=== PATIENT | male | born 1940 | race Caucasian/White ===

== ENCOUNTER → 2017-06-05 | Outpatient (CLI) | payer MEDICARE, OTHER ==
[~2017-06-05] MED LIST: ASPI-496 PO; IBUP-1223 PO
[2017-06-05 14:58] LABS: BASOPHILS # (AUTO) 0.02 x10^3/uL (0-0.1); BASOPHILS % (AUTO) 0 % (0-1); EOSINOPHILS # (AUTO) 0.22 x10^3/uL (0-0.4); EOSINOPHILS % (AUTO) 3 % (1-7); LYMPHOCYTES # (AUTO) 2.26 x10^3/uL (1-3.4); LYMPHOCYTES % (AUTO) 34 % (22-44); MD NO; MEAN CORPUSCULAR HEMOGLOBIN 29.8 pg (27.5-34.5); MEAN CORPUSCULAR HGB CONC 34.2 g/dL (33.2-36.2); MEAN CORPUSCULAR VOLUME 87.1 fL (81-97); MONOCYTES # (AUTO) 0.55 x10^3/uL (0.2-0.8); MONOCYTES % (AUTO) 8 % (2-9); NEUTROPHILS # (AUTO) 3.52 x10^3/uL (1.8-6.8); NEUTROPHILS % (AUTO) 54 % (42-75); PLATELET COUNT 302 x10^3/uL (130-400); RED BLOOD COUNT 4.72 x10^6/uL (4.38-5.82); RED CELL DISTRIBUTION WIDTH 13.5 % (9.4-14.8)
[2017-06-05 15:01] LABS: MICROSCOPIC NOT IND
[2017-06-05 15:02] LABS: CULTURE INDICATED? NO
[2017-06-05 15:09] LABS: ALBUMIN 4.3 g/dL (3.4-5.0); ANION GAP 7 mmol/L (5-15); CHLORIDE 103 mmol/L (98-107)
[2017-06-05 15:13] LABS: ALANINE AMINOTRANSFERASE 21 U/L (12-78); ALKALINE PHOSPHATASE 60 U/L (45-117); BILIRUBIN,TOTAL 0.5 mg/dL (0.2-1.0); CREATININE 0.85 mg/dL (0.7-1.3)
== END | disposition home or self-care (01) ==
LOC: STAR 13:36
PROVIDERS: ATTEND Orthopaedic Surgery
DX: Z01.818 Encounter for other preprocedural examination (principal); M16.12 Unilateral primary osteoarthritis, left hip
CPT/HCPCS: 36415; 80053; 81003; 85025; 87081; 93005

== ENCOUNTER 2017-06-16 05:32 | Inpatient (IN) | payer MEDICARE, OTHER ==
[~2017-06-16] VITALS: Ht 170.2 cm; Wt 67.4 kg
[2017-06-16] MEDS ORDERED: LACTATED RINGERS 1,000 ML IV SCH (06:32)
[2017-06-16] MEDS ORDERED: TRANEXAMIC ACID 100 MG/ML, 10ML ONE (06:42)
[2017-06-16] MEDS ORDERED: KETOROLAC 60 MG/2 ML ONE ×2 (06:42→07:44)
[2017-06-16] MEDS ORDERED: EPINEPHRINE 1 MG/ML, 1ML ONE ×2 (06:43→07:44)
[2017-06-16] MEDS ORDERED: VANCOMYCIN 1,000 MG ONE (06:43)
[2017-06-16] MEDS ORDERED: SODIUM CHLORIDE 0.9% 100 ML ONE (06:43)
[2017-06-16] MEDS ORDERED: ROPIvacaine/PF 0.2%, 20 ML ONE (06:43)
[2017-06-16] MEDS ORDERED: FENTANYL PF 250 MCG/5ML ONE (06:53)
[2017-06-16] MEDS ORDERED: ROCURONIUM 10MG/ML,5ML ONE (07:10)
[2017-06-16] MEDS ORDERED: ONDANSETRON 2MG/ML, 2ML ONE (07:10)
[2017-06-16] MEDS ORDERED: EPHEDRINE 50 MG/ML, 1ML ONE (07:10)
[2017-06-16] MEDS ORDERED: GLYCOPYRROLATE 0.2MG/1ML, 5ML ONE (07:10)
[2017-06-16] MEDS ORDERED: CEFAZOLIN 1,000 MG ONE (07:10)
[2017-06-16] MEDS ORDERED: NEOSTIGMINE 1 MG/ML, 10ML ONE (07:10)
[2017-06-16] MEDS ORDERED: PROPOFOL 10 MG/ML, 20ML ONE (07:10)
[2017-06-16] MEDS ORDERED: DEXAMETHASONE 4 MG/ML, 1ML ONE (07:10)
[2017-06-16] MEDS ORDERED: FENTANYL PF 100 MCG/2ML ONE (09:10)
[2017-06-16] MEDS ORDERED: OXYcodone 5 MG/5 ML ORAL.SOL UDC ONE (09:11)
[2017-06-16] MEDS: FENTANYL PF 100 MCG/2ML IV PRN ×2 (09:15→09:30)
[2017-06-16] MEDS ORDERED: PROMETHAZINE 12.5 MG SUPP PR PRN ×2 (09:30)
[2017-06-16] MEDS ORDERED: ONDANSETRON 4 MG TABLET PO PRN (09:30)
[2017-06-16] MEDS ORDERED: OXYcodone IR 5MG TABLET PO PRN (09:30)
[2017-06-16] MEDS ORDERED: ZOLPIDEM 5MG TABLET PO PRN (09:30)
[2017-06-16] MEDS ORDERED: LABETALOL 5MG/ML, 20ML IV PRN (09:30)
[2017-06-16] MEDS ORDERED: TRANEXAMIC ACID 1,000 MG in SODIUM CHLORIDE 0.9% 100 ML IVPB ONE (09:30)
[2017-06-16] MEDS ORDERED: ONDANSETRON 2MG/ML, 2ML IV PRN (09:30)
[2017-06-16] MEDS ORDERED: BISACODYL 10 MG SUPP PR PRN (09:30)
[2017-06-16] MEDS ORDERED: hydrALAzine 20 MG/ML, 1ML IV PRN (09:30)
[2017-06-16] MEDS ORDERED: PROMETHAZINE 25 MG/ML, 1ML IV PRN (09:30)
[2017-06-16] MEDS: ACETAMINOPHEN 500 MG TABLET PO SCH ×2 (09:30→17:56)
[2017-06-16] MEDS ORDERED: MAGNESIUM HYDROXIDE 8%, 30ML UDC PO PRN (09:30)
[2017-06-16] MEDS ORDERED: DIAZEPAM 5 MG TABLET PO PRN (09:30)
[2017-06-16] MEDS ORDERED: ALUMINUM/MAG/SIMETHICONE 30 ML UDC PO PRN (09:30)
[2017-06-16] MEDS ORDERED: ACETAMINOPHEN 500 MG TABLET PO ONE (09:30)
[2017-06-16] MEDS ORDERED: LORazepam 1MG TABLET PO PRN (09:30)
[2017-06-16] MEDS ORDERED: PROMETHAZINE 25 MG/ML, 1ML IM PRN (09:30)
[2017-06-16] MEDS ORDERED: DIPHENHYDRAMINE 25 MG CAPSULE PO PRN (09:30)
[2017-06-16] MEDS ORDERED: OXYcodone 5 MG/5 ML ORAL.SOL UDC PO PRN (09:30)
[2017-06-16] MEDS ORDERED: TAMSULOSIN 0.4 MG CAP.ER.24H PO ONE (09:30)
[2017-06-16] MEDS ORDERED: ACETAMINOPHEN 325 MG TABLET PO PRN (09:30)
[2017-06-16] MEDS ORDERED: HYDROmorphone 1 MG/ML, 1ML IV PRN ×2 (09:30)
[2017-06-16] MEDS ORDERED: SENNA/DOCUSATE TABLET PO PRN (09:30)
[2017-06-16] MEDS ORDERED: ALBUTEROL SULFATE 2.5 MG/3 ML NPPB PRN (09:30)
[2017-06-16] MEDS: GABAPENTIN 300 MG CAPSULE PO SCH ×3 (10:25→20:29)
[2017-06-16 12:02] VITALS: BP 106/59
[2017-06-16 12:06] VITALS: BP 106/59
[2017-06-16] MEDS: D5%-0.45% NACL 1,000 ML IV SCH (15:20)
[2017-06-16] MEDS: CEFAZOLIN PMX 1GM/50ML 50 ML IVPB SCH (15:30)
[2017-06-16 19:19] VITALS: BP 100/59
[2017-06-16] MEDS: DOCUSATE 100 MG CAPSULE PO SCH (20:29)
[2017-06-16 23:31] VITALS: BP 95/52
[2017-06-17] MEDS: CEFAZOLIN PMX 1GM/50ML 50 ML IVPB SCH (00:08)
[2017-06-17] MEDS: D5%-0.45% NACL 1,000 ML IV SCH ×2 (01:20→11:20)
[2017-06-17] MEDS: ACETAMINOPHEN 500 MG TABLET PO SCH ×2 (02:01→09:06)
[2017-06-17 04:25] VITALS: BP 98/61
[2017-06-17] MEDS ORDERED: ASPIRIN 81 MG TABLET EC PO SCH (06:00)
[2017-06-17] MEDS ORDERED: DEXAMETHASONE 4 MG/ML, 1ML IVPush SCH (06:00)
[2017-06-17 07:07] VITALS: BP 96/43
[2017-06-17] MEDS ORDERED: CEFAZOLIN PMX 1GM/50ML 50 ML IV SCH (08:00)
[2017-06-17] MEDS ORDERED: CEFAZOLIN PMX 1GM/50ML 50 ML IV ONE (08:00)
[2017-06-17] MEDS: DOCUSATE 100 MG CAPSULE PO SCH (09:06)
[2017-06-17] MEDS: GABAPENTIN 300 MG CAPSULE PO SCH (09:06)
[2017-06-17] MEDS ORDERED: KETOROLAC 30 MG/1 ML IV SCH (09:30)
[2017-06-17] MEDS ORDERED: TAMSULOSIN 0.4 MG CAP.ER.24H PO SCH (10:00)
[2017-06-17 14:45] VITALS: BP 103/63
[2017-06-17] MEDS ORDERED: TAMS-11 PO (15:30)
== END 2017-06-17 15:51 | disposition home or self-care (01) | DRG 470 ==
LOC: OBSVTOIN 05:32 → INTOOBSV 05:32 → ORIP 05:32 → 4NOR 10:43 → DCLOUNGE 06-17 15:25
PROVIDERS: ADMIT Orthopaedic Surgery; ATTEND Orthopaedic Surgery
PROC: 0SRB06Z Replacement of Left Hip Joint with Oxidized Zirconium on Polyethylene Synthetic Substitute, Open Approach (ICD-10-PCS; principal; 2017-06-16 07:30)
DX: M16.12 Unilateral primary osteoarthritis, left hip (principal); G47.9 Sleep disorder, unspecified; R33.9 Retention of urine, unspecified; S70.02XA Contusion of left hip, initial encounter
CPT/HCPCS: 36415; 72170; 85018; 86850; 86900; 96365; 96375; C1713; G0378; J0171; J0690; J1100; J1885; J2405; J2704; J2710; J2795; J3010; J3370; J3490; C1776; J7120